=== PATIENT | male | born 1940 | race Asian ===

== ENCOUNTER 2020-07-10 05:44 | Emergency (ER) | payer OTHER ==
[~2020-07-10] VITALS: Ht 176.5 cm; Wt 63.6 kg
[2020-07-10] MEDS ORDERED: SPIR25 PO (05:58)
[2020-07-10] MEDS ORDERED: ASPI-1450 PO (05:58)
[2020-07-10] MEDS ORDERED: CARV12 PO (05:58)
[2020-07-10] MEDS ORDERED: SACU1TAB7 PO (05:58)
[2020-07-10] MEDS ORDERED: APIX5TAB PO (05:58)
[2020-07-10] MEDS ORDERED: GLIP2.5T17 PO (05:58)
[2020-07-10] MEDS ORDERED: CHOL100044 PO (05:58)
[2020-07-10 06:08] LABS: GLUCOSE,POINT OF CARE 191 MG/DL (70-110)
[2020-07-10 06:36] LABS: BASOPHILS % (AUTO) 0.3 % (0.0-2.0); HEMATOCRIT 43.2 % (41-53); HEMOGLOBIN 14.2 g/dL (13.5-17.5); LYMPHOCYTES # (AUTO) 1.7 K/uL (1.0-4.8); LYMPHOCYTES % (AUTO) 23.5 % (22.0-44.0); MEAN CORPUSCULAR HEMOGLOBIN 32.2 pg (26.0-34.0); MEAN CORPUSCULAR HGB CONC 32.9 G/dL (31.0-37.0); MEAN CORPUSCULAR VOLUME 98 fL (80-100); MONOCYTES # (AUTO) 0.5 K/uL (0.1-1.0); MONOCYTES % (AUTO) 6.5 % (2.0-9.0); NEUTROPHILS # (AUTO) 4.7 K/uL (1.8-7.7); NEUTROPHILS % (AUTO) 66.7 % (40.0-70.0); PLATELET COUNT (AUTO) 173 K/uL (150-450); RED BLOOD CELL COUNT(AUTO) 4.41 MIL/uL (4.50-5.90); RED CELL DISTRIBUTION WIDTH 13.2 % (11.5-14.5)
[2020-07-10] MEDS ORDERED: ASPIRIN 81 MG CHEWABLE TABLET PO ONE (06:45)
[2020-07-10] MEDS ORDERED: ACETAMINOPHEN 500 MG TABLET PO ONE (06:45)
[2020-07-10] MEDS ORDERED: ASPIRIN 325 MG TABLET PO ONE ×2 (06:45)
[2020-07-10 07:00] LABS: CALCIUM, TOTAL 9.7 mg/dL (8.8-10.5); CREATININE 1.29 mg/dL (0.60-1.30); POTASSIUM 4.2 mmol/L (3.5-5.1)
[2020-07-10] MEDS ORDERED: HEPARIN SODIUM 25000 UNITS/D5W 250 ML IV PRN (07:00)
[2020-07-10 07:01] LABS: COVID AG,FIA SOURCE NASOPHARYNGEAL
[2020-07-10 07:06] LABS: ALBUMIN 3.9 g/dL (3.4-5.0); BILIRUBIN,TOTAL 0.7 mg/dL (0.1-1.0); TOTAL PROTEIN, SERUM 7.1 g/dL (6.4-8.2)
[2020-07-10 07:25] VITALS: BP 128/86
[2020-07-10 07:35] LABS: INR 1.1 (0.9-1.1); PROTHROMBIN TIME 11.8 SEC (9.4-11.6)
== END 2020-07-10 08:14 | disposition short-term general hospital (02) ==
LOC: EMS 05:56
DX: I24.9 Acute ischemic heart disease, unspecified (principal); Z20.822 Contact with and (suspected) exposure to COVID-19; I11.0 Hypertensive heart disease with heart failure; I50.9 Heart failure, unspecified; E11.9 Type 2 diabetes mellitus without complications
CPT/HCPCS: 36415; 80053; 82962; 83880; 84484; 85025; 85610; 85730; 87426; 93005; 96365; 99291; J1644